=== PATIENT | female | born 1980 | race Caucasian/White ===

== ENCOUNTER → 2017-02-18 | Outpatient (CLI) | payer BC ==
[~2017-02-18] MED LIST: ATIVAN2 MG PO; CALCIUM 600 + V1 TA1 PO; CLARITIN 1010 MG/TAB; CLARITIN 1010 MG/TAB PO; EFFEXOR XR75 MG/CAP PO; FIORINAL 325 MG1 CAP PO; INDERAL60 MG; LUTERA 0.02 MG-1 TAB PO; MAXALT MLT10 MG/TAB PO; MULTIPLE VITAMI1 CAP PO; NEURONTIN100 MG/CAP; NEURONTIN400 MG/CAP; NORCO 325 MG-7.1 TAB PO; PAMELOR 10MG10 MG; PAMELOR 10MG10 MG PO; PAMELOR 25MG25 MG PO; PERCOCET 325 MG1 TA2 PO; ROXICODONE 55 MG/TAB PO; SPRIX15.75 MG/A NS; TOPAMAX 25MG25 M1; ULTRAM 50MG TAB50 MG PO; WELLBUTRIN SR150 M1; WELLBUTRIN XL150 MG PO; WELLBUTRIN XL300 M1 PO; XANAX 0.5MG0.5 MG PO; ZOFRAN8 MG PO; ZOLOFT 100MG100 MG PO; ZYRTEC 10MG10 MG PO
== END ==
LOC: COL.RAD 11:54
DX: R10.31 Right lower quadrant pain (principal)
CPT/HCPCS: Q9967

== ENCOUNTER 2017-09-21 15:54 | Emergency (ER) | payer BC ==
[~2017-09-21] VITALS: Ht 160 cm; Wt 86.4 kg
[2017-09-21 16:07] VITALS: TEMP 98.5
[2017-09-21 16:48] LABS: BASO % 0.3 % (0.0-2.0); EOS # 0.1 (0.0-0.7); EOS % 0.7 % (0-4.0); GRAN # 4.1 (1.4-6.5); GRAN % 47.3 % (42.2-75.2); HEMATOCRIT 44.6 % (37.0-47.0); HEMOGLOBIN 15.5 g/dl (12.5-16.0); LYMPH # 3.9 (1.2-3.4); LYMPH % 44.7 % (20.0-51.0); MEAN CELL VOLUME 91 fl (80.0-100.0); MEAN CORPUSCULAR HEMOGLOBIN 32 pg (27.0-31.0); MEAN CORPUSCULAR HGB CONC 35 g/dl (33.0-37.0); MEAN PLATELET VOLUME 9.3 fl (7.4-10.4); MONO # 0.6 (0.1-0.6); MONO % 6.9 % (1.7-9.3); PLATELET COUNT 334 K/mm3 (130-400); WHITE BLOOD COUNT 8.6 K/mm3 (4.8-10.8)
[2017-09-21 17:02] LABS: ALANINE AMINOTRANSFERASE 67 U/L (9-52); ALBUMIN 4.4 gm/dL (3.5-5.0); ALKALINE PHOSPHATASE 66 U/L (50-136); ANION GAP 10 mmol/L (7-16); BILIRUBIN,TOTAL 0.5 mg/dL (0.0-1.0); BLOOD UREA NITROGEN 7 mg/dL (7-17); CALCIUM 9.3 mg/dL (8.4-10.2); CARBON DIOXIDE 25 mmol/L (22-30); CHLORIDE 106 mmol/L (98-107); CREATININE, serum 0.94 mg/dL (0.52-1.25); GLUCOSE 74 mg/dL (74-106); POTASSIUM 3.5 mmol/L (3.4-5.0); SODIUM 141 mmol/L (137-145); TOTAL PROTEIN 7.6 gm/dL (6.4-8.2)
[2017-09-21 17:03] LABS: ACETAMINOPHEN < 10 ug/mL (10-30); ALCOHOL(ethanol),MEDICAL < 10 mg/dL; SALICYLATE < 1.0 mg/dL
[2017-09-21 17:37] LABS: AMPHETAMINE URINE NEGATIVE; BARBITURATES URINE NEGATIVE; BENZODIAZEPINES URINE NEGATIVE; BUPRENORPHINE URINE NEGATIVE; METHADONE URINE NEGATIVE; OPIATES URINE NEGATIVE; OXYCODONE URINE NEGATIVE; PHENCYCLIDINE URINE NEGATIVE; PROPOXYPHENE URINE NEGATIVE; THC CANNABINOIDS URINE NEGATIVE; TRICYCLIC ANTIDEPRESS URINE POSITIVE
[2017-09-22 01:24] VITALS: BP 113/52; PULSE 59
== END 2017-09-22 01:26 ==
LOC: COL.ER 15:54
PROVIDERS: Physician Assistant
DX: F32.9 Major depressive disorder, single episode, unspecified (principal); F41.9 Anxiety disorder, unspecified; G43.909 Migraine, unspecified, not intractable, without status migrainosus; Z32.02 Encounter for pregnancy test, result negative

== ENCOUNTER → 2022-08-18 | Outpatient (CLI) | payer BC | LOC: MC.RAD 09:50 | DX: Z12.31 Encounter for screening mammogram for malignant neoplasm of breast (principal) ==

== ENCOUNTER → 2023-11-26 | Outpatient (CLI) | payer BC | LOC: MC.RAD 08:19 | DX: Z12.31 Encounter for screening mammogram for malignant neoplasm of breast (principal) ==